=== PATIENT | male | born 1990 | race Caucasian/White ===

== ENCOUNTER 2017-03-24 10:59 | Emergency (ER) | payer OTHER | END 2017-03-24 13:06 | disposition home or self-care (01) | LOC: ER 10:59 | PROC: 0HQGXZZ Repair Left Hand Skin, External Approach (ICD-10-PCS; principal; 2017-03-24) | DX: S62.637A Displaced fracture of distal phalanx of left little finger, initial encounter for closed fracture (principal); S61.217A Laceration without foreign body of left little finger without damage to nail, initial encounter; W31.89XA Contact with other specified machinery, initial encounter | CPT/HCPCS: 73140-LT; 90471; 90714; 96372; 99283; A9270-GY ==